=== PATIENT | male | born 1955 | race Caucasian/White ===

== ENCOUNTER 2022-03-24 11:46 | Emergency (ER) | payer MEDICARE, BC ==
[2022-03-24 12:47] LABS: #Basophils 0.1 10x3/uL (0.0-0.2); #Eosinphils 0.3 10x3/uL (0.0-0.5); #Neutrophils 9.4 10x3/uL (1.5-8.4); %Basophils 0.8 % (0.0-2.0); %Eosinophils 2.6 % (0.0-6.0); %Lymphocytes 10.9 % (18.0-47.0); %Monocytes 8.2 % (0.0-10.0); %Neutrophils 76.7 % (40.0-75.0); Hemoglobin 11.1 g/dL (13.5-17.5); Mean Corpuscular HGB CONC 34.5 g/dL (32.0-36.0); Mean Corpuscular Hemoglobin 30.1 pg (27.0-33.0); Mean Corpuscular Volume 87.3 fl (81.2-95.1); Mean Platelet Volume 9.8 fl (7.4-10.4); Platelet Count 552 10x3/uL (150-450); RBC Distribution Width 13.9 % (11.5-14.5); Red Blood Cell (RBC) Count 3.69 10x6/uL (4.32-5.72); White Blood Cell (WBC) Count 12.3 10x3/uL (3.5-10.5)
[2022-03-24 13:03] LABS: ALT (SGPT) 66 U/L (8-55); AST (SGOT) 34 U/L (5-34); Albumin 3.5 g/dL (3.4-4.8); Alkaline Phosphatase 89 U/L (40-110); Anion Gap 12 mmol/L (10-20); BUN (Urea Nitrogen) 21 mg/dL (8.4-25.7); Bilirubin, Total 0.3 mg/dL (0.2-1.2); Calc. Creatinine Clearance 0 mL/min (70-130); Calcium 10.1 mg/dL (7.8-10.44); Carbon Dioxide 24 mmol/L (23-31); Chloride 101 mmol/L (98-107); Estimated GFR 91; Globulin 3.8 g/dL (2.4-3.5); Glucose 122 mg/dL (80-115); Potassium 4.3 mmol/L (3.5-5.1); Protein, Total 7.3 g/dL (5.8-8.1); Sodium 133 mmol/L (136-145)
== END 2022-03-24 16:21 | disposition home or self-care (01) ==
LOC: CSHERS 11:46
DX: L03.116 Cellulitis of left lower limb (principal); Z87.891 Personal history of nicotine dependence
CPT/HCPCS: 80053; 85025

== ENCOUNTER 2022-12-29 12:18 | Outpatient (CLI) | payer MEDICARE, BC | END 2022-12-29 12:19 | disposition home or self-care (01) | LOC: CSHLAB 12:18 | PROVIDERS: ATTEND Surgery | DX: Z01.818 Encounter for other preprocedural examination (principal); C30.0 Malignant neoplasm of nasal cavity | CPT/HCPCS: 93005; 93010 ==

== ENCOUNTER 2022-12-30 06:45 | Day surgery (SDC) | payer MEDICARE, BC ==
[2022-12-29 13:37] VITALS: BMI 20.7
[2022-12-30] MEDS ORDERED: PROPOFOL 40 ML ONE (09:22)
[2022-12-30] MEDS ORDERED: Fentanyl 250 MCG/5 ML VIAL ONE (09:22)
[2022-12-30] MEDS ORDERED: Bupivacaine PF 0.5% 30 ML VIAL ONE (09:23)
[2022-12-30] MEDS ORDERED: CEFAZOLIN 2 GM VIAL ONE (09:26)
[2022-12-30] MEDS ORDERED: Lidocaine 2% MPF 10 ML AMP (For Epidural Use) ONE (09:27)
[2022-12-30] MEDS ORDERED: Lidocaine 2% PF 5 ML VIAL ONE (09:27)
[2022-12-30] MEDS ORDERED: Dexamethasone 4 mg/ml Vial ONE (09:29)
[2022-12-30] MEDS ORDERED: Ondansetron PF 4 MG/2 ML Vial ONE (09:29)
[2022-12-30] MEDS ORDERED: Glycopyrrolate 0.2 MG/ML 5 ML SYRINGE ONE (09:49)
[2022-12-30] MEDS ORDERED: PHENYLEPHRINE-NS 100 MCG/ML 10 ML SYRINGE ONE (09:50)
[2022-12-30] MEDS ORDERED: ePHEDrine Sulfate 50 MG/10 ML VIAL ONE (10:05)
[2022-12-30] MEDS ORDERED: HYDROcodone/Acetaminophen 5/325 mg Tablet PO PRN (10:27)
== END 2022-12-30 11:20 | disposition home or self-care (01) ==
LOC: CSHSDC 06:45
PROVIDERS: ATTEND Surgery
PROC: 0JH60WZ Insertion of Totally Implantable Vascular Access Device into Chest Subcutaneous Tissue and Fascia, Open Approach (ICD-10-PCS; principal; 2022-12-30)
DX: C69.62 Malignant neoplasm of left orbit (principal); C30.0 Malignant neoplasm of nasal cavity; H54.7 Unspecified visual loss; Z87.891 Personal history of nicotine dependence
CPT/HCPCS: 36561; 71045; 80053; 82248; 83615; 84100; 84439; 84443; 84550; C1788; J1100; J1642; J2001; J2405; J2704; J3010; S0020